=== PATIENT | male | born 1980 | race Caucasian/White ===

== ENCOUNTER → 2016-06-30 | Outpatient (CLI) | payer OTHER ==
[~2016-06-30] MED LIST: ALBUTEROL17 GM; BACTRIM DS TABL1 TA1 PO; HYDROCODON-ACE1 EAC4 PO; HYDROCODONE; KLONOPIN; LORTAB 10-5001 EACH; LORTAB 7.5-5001 TAB PO; MOTRIN600 MG; NO MEDICATIONS; OMNICEF; PRILOSEC20 M1 PO; RISPERIDONE; SYMBICORT80
--- NOTE | ~2016-06-30 | EKG ---
PATIENT: DONI GRAY UNIT #: [id number] Ventricular Rate: 65 BPM Atrial Rate: 65 BPM P-R Interval: 154 ms QRS Duration: 88 ms Q-T Interval: 354 ms QTC Calculation(Bezet): 368 ms P [place]: 46 degrees Calculated R [place]: 66 degrees Calculated T [place]: 54 degrees Diagnosis Line: Normal sinus rhythm Diagnosis Line: Normal ECG Diagnosis Line: No previous ECGs available Diagnosis Line: Confirmed by CHEMO DIXON MD ([id number]) on 07/02/2016 Diagnosis Line: 6:23:16 PM INTERPRETING MD: DESTINY OCASIO
--- NOTE | ~2016-06-30 | CR63 ---
[facility]. [facility] A Service of [facility] & [facility] RADIOLOGY TEXT RESULTS PATIENT: DONI GRAY LOCATION: [facility] : 78 UNIT #: [id number] AGE: [address]: Mavis Fraser MD SEX: M ORDER DR: [id number] [facility] [address] [place], [place] [address] [id number] O MR#: [id number] Acc #: [id number] NAME: DONI GRAY : 1980 SEX: M STUDY DATE/TIME: 06/30/2016 15:46 UNIT: [facility] ROOM: STUDY DESCRIPTION: CR Chest 2 View Attending Physician: Mavis Fraser M.D. Referring Physician: Mavis Fraser M.D. Ordering Physician: Mavis Fraser M.D. Primary Care Physician: Christopher Wilson M.D. MEDICAL IMAGING REPORT This report is preliminary unless electronic signature is present EXAM Chest PA and lateral, 06/30/2016 HISTORY Torn rotator cuff left shoulder, preop left shoulder arthroscopy with rotator cuff repair. Left shoulder pain for 5 months. Smoking history for many years. FINDINGS PA and lateral examination of the chest upright shows a good expansion of the parenchyma with a normal distribution of the pulmonary vascularity. There is no indication of congestion, effusion, infiltrate, tumor, or nodular density. The pleural reflections and diaphragmatic contours are normal. The cardiac silhouette and mediastinal anatomy is within normal limits. IMPRESSION Normal chest. Dictated by... Doni Russell M.D. THIS IS AN ELECTRONICALLY VERIFIED REPORT Doni Russell M.D. at 07/01/2016 2:16 PM JANICE/kaylin TD: 06/30/2016 22:46 JOB #: [id number] MEDICAL IMAGING REPORT COPY
[2016-06-30 15:16] LABS: HEMATOCRIT 47.9 % (38.0-50.0); HEMOGLOBIN 15.8 gm/dL (13.0-16.0); MEAN PLATELET VOLUME 7.5 FL (6.5-11.5); RED BLOOD COUNT 5.45 X10e (3.90-5.60); RED CELL DISTRIBUTION WIDTH 14.7 % (11.0-15.5); URINE APPEARANCE CLEAR; URINE BILIRUBIN NEG (NEG); URINE BLOOD NEG (NEG); URINE COLOR YELLOW; URINE GLUCOSE NEG (NEG); URINE KETONE NEG (NEG); URINE LEUKOCYTE ESTERASE NEG (NEG); URINE NITRATE NEG (NEG); URINE PH 5.5 (5-8); URINE PROTEIN NEG (NEG); URINE SPECIFIC GRAVITY 1.012 (1.003-1.035); URINE UROBILINOGEN 0.2 MG/DL (NEG); WHITE BLOOD COUNT 9.1 X10e3 (4.0-10.5)
[2016-06-30 15:52] LABS: BLOOD UREA NITROGEN 10 mg/dL (9-23); CALCIUM SERUM 8.8 mg/dL (8.4-10.2); CARBON DIOXIDE 27 mmol/L (22-31); CHLORIDE 101 mmol/L (100-111); CREATININE SERUM 0.8 mg/dL (0.6-1.4); GLOM FILT RATE Estimated ABOVE60 mL/min (>60); GLUCOSE FASTING 79 mg/dL (70-110); POTASSIUM 3.9 mmol/L (3.5-5.1); SODIUM 130 mmol/L (135-145)
== END | disposition home or self-care (01) ==
LOC: CAMB 14:46
PROVIDERS: Orthopaedic Surgery
DX: Z01.818 Encounter for other preprocedural examination (principal); S46.012A Strain of muscle(s) and tendon(s) of the rotator cuff of left shoulder, initial encounter
CPT/HCPCS: 36415; 71020; 80048; 81003; 85027; 93005

== ENCOUNTER 2016-11-29 11:52 | Emergency (ER) | payer OTHER ==
--- NOTE | ~2016-11-29 | CR142 ---
[facility] A Service [facility] RADIOLOGY TEXT RESULTS PATIENT: DONI GRAY LOCATION: SED : 78 UNIT #: [id number] AGE: [address]: RANJAN WEST SEX: M ORDER DR: [id number] [place] [id number] E MR#: [id number] Acc #: [id number] NAME: DONI GRAY : 1980 SEX: M STUDY DATE/TIME: 11/29/2016 12:37 UNIT: SED ROOM: STUDY DESCRIPTION: CR Hand Min 3 Views Rt Attending Physician: Ranjan West Aprn Ordering Physician: Ranjan West Aprn Primary Care Physician: Christopher Wilson M.D. MEDICAL IMAGING REPORT This report is preliminary unless electronic signature is present. EXAM 3 views right hand 11/29/2016 HISTORY 36-year-old male with right hand and wrist injury which began 2 days ago. Twisted wrist with a drill. COMPARISON None. FINDINGS Right hand soft tissue swelling is thought to be present, greatest along the dorsal aspect of metacarpals. However, no retained radiopaque foreign body is seen in the soft tissues. There are signs of old healed left fifth metacarpal fracture. No acute fracture or joint dislocation is identified. IMPRESSION 1. Old acute metacarpal fracture. 2. No acute osseous abnormality is seen in the right hand. 3. Right hand soft tissue swelling. No retained radiopaque foreign body is seen. Dictated by... Sarah Lopez M.D. THIS IS AN ELECTRONICALLY VERIFIED REPORT Sarah Lopez M.D. at 11/30/2016 8:31 AM SUDARSHAN/yana [facility] A Service [facility] RADIOLOGY TEXT RESULTS PATIENT: DONI GRAY LOCATION: SED : 78 UNIT #: [id number] AGE: [address]: RANJAN WEST SEX: M ORDER DR: TD: 11/29/2016 19:53 JOB #: [id number] MEDICAL IMAGING REPORT Page 1 of 1
--- NOTE | ~2016-11-29 | CR282 ---
[facility] A Service of [facility] RADIOLOGY TEXT RESULTS PATIENT: DONI GRAY LOCATION: SED : 78 UNIT #: [id number] AGE: [address]: RANJAN WEST SEX: M ORDER DR: [id number] [place] [id number] E MR#: [id number] Acc #: [id number] NAME: DONI GRAY : 1980 SEX: M STUDY DATE/TIME: 11/29/2016 12:34 UNIT: SED ROOM: STUDY DESCRIPTION: CR Wrist Min 3 View Rt Attending Physician: Ranjan West Aprn Ordering Physician: Ranjan West Aprn Primary Care Physician: Christopher Wilson M.D. MEDICAL IMAGING REPORT This report is preliminary unless electronic signature is present. EXAM Right wrist 3 views, 11/29/2016 1234 hours CLINICAL HISTORY Patient injured wrist. Twisting injury with drill on 11/27/2016. Hand and wrist pain. COMPARISON Right hand film 11/29/2016 FINDINGS AP, lateral and oblique views demonstrate a normal appearance to the distal radius and ulna. There is soft tissue swelling over the distal carpal row and the metacarpals. There is no definite carpal bone fracture. There is old healed fracture deformity of the distal fifth metacarpal. IMPRESSION Diffuse dorsal soft tissue swelling with old healed distal fifth metacarpal fracture. No acute fracture seen. Dictated by... Matilda Dumont M.D. THIS IS AN ELECTRONICALLY VERIFIED REPORT Matilda Dumont M.D. at 11/30/2016 9:25 AM TEO/latrice TD: 11/29/2016 20:10 [facility] A Service [facility] RADIOLOGY TEXT RESULTS PATIENT: DONI GRAY LOCATION: SED : 78 UNIT #: [id number] AGE: [address]: RANJAN WEST SEX: M ORDER DR: BLUE #: [id number] MEDICAL IMAGING REPORT Page 1 of 1
== END 2016-11-29 14:02 | disposition home or self-care (01) ==
LOC: SED 11:52
DX: S63.501A Unspecified sprain of right wrist, initial encounter (principal); F17.210 Nicotine dependence, cigarettes, uncomplicated; J44.9 Chronic obstructive pulmonary disease, unspecified; X50.1XXA Overexertion from prolonged static or awkward postures, initial encounter; Y93.89 Activity, other specified; Y92.009 Unspecified place in unspecified non-institutional (private) residence as the place of occurrence of the external cause
CPT/HCPCS: 29280; 73110; 73130; 99283